=== PATIENT | female | born 1985 | race Caucasian/White ===

== ENCOUNTER 2017-04-15 05:00 | Emergency (ER) | payer OTHER ==
[2017-04-15 05:25] VITALS: PULSE 87; BMI 21.2
[2017-04-15] MEDS ORDERED: FAMOTIDINE 20 MG/50 ML IVPB 50 ML IVPB ONE ×2 (05:28→05:48)
[2017-04-15] MEDS ORDERED: SODIUM CHLORIDE 1,000 ML IV STA (05:28)
[2017-04-15] MEDS ORDERED: methylPREDNISolone NA SUCC 125 MG/2 ML VIAL IVPB ONE (05:28)
--- NOTE | 2017-04-15 05:34 | PDOC ---
History of Present Illness - General Chief Complaint: Pain Stated Complaint: STOMACH PAIN Time Seen by Provider: 04/15/17 05:23 History Source: Patient Exam Limitations: No Limitations - History of Present Illness Initial Comments: 04/15/17 05:30 31yo Female patient w/ PmHx: Asthma presents to ED c/o itching throat, stomach pain, itchy palms and feet. Patient states symptoms began 1 hour after taking Ibuprofen for bodyaches. LNMP: Current. She denies any other complaints. Timing/Duration: 1-3 hours Severity: mild Modifying Factors: improves with: medication. worse with: cold therapy, eating , immobilization, movement, rest, other Associated Symptoms: denies: denies symptoms, chest pain, cough, diaphoresis, fever/chills, headaches, loss of appetite, malaise, nausea/vomiting, rash, seizure, shortness of breath, syncope, weakness, other Past History - Travel Traveled outside of the country in the last 30 days: No Close contact w/someone who was outside of country & ill: No - Past Medical History Allergies/Adverse Reactions: Allergies Allergy/AdvReac Type Severity Reaction Status Date / Time prednisone Allergy Verified 04/15/17 05:22 Home Medications: Ambulatory Orders Fluticasone Prop 0.05% Nasal [Flonase -] 1 - 2 spray NS DAILY 05/12/16 Montelukast Na [Singulair -] 0 mg PO HS 05/12/16 Famotidine [Pepcid -] 40 mg PO DAILY #10 tablet 04/15/17 Asthma: Yes Diabetes: No HTN: No Hypercholesterolemia: No - Surgical History Abdominal Surgery: No Lung Surgery: No - Immunization History Immunization Up to Date: Yes - Suicide/Smoking/Psychosocial Hx Smoking History: Never smoked Have you smoked in the past 12 months: No Number of Cigarettes Smoked Daily: 0 Cigars Per Day: 0 Information on smoking cessation initiated: No Hx Alcohol Use: No Drug/Substance Use Hx: No Substance Use Type: None Hx Substance Use Treatment: No Review of Systems - Review of Systems Able to Perform ROS?: Yes Is the patient limited Lebanese proficient: No HEENTM: Yes: Throat Pain. No: Throat Swelling, Mouth Pain, Difficulty Swallowing, Mouth Swelling Respiratory: No: Cough Cardiac (ROS): No: Chest Pain ABD/GI: Yes: Abdominal cramping. No: Abdominal Distended, Constipated, Diarrhea , Difficulty Swallowing, Nausea, Poor Appetite, Poor Fluid Intake, Vomiting Integumentary: Yes: Pruritus All Other Systems: Reviewed and Negative *Physical Exam - Vital Signs Last Vital Signs Temp Pulse Resp BP Pulse Ox 98.1 F 87 14 123/87 97 04/15/17 05:23 04/15/17 05:23 04/15/17 05:23 04/15/17 05:23 04/15/17 05:23 - Physical Exam General Appearance: Yes: Nourished, Appropriately Dressed. No: Apparent Distress, Mild Distress, Moderate Distress, Severe Distress HEENT: positive: EOMI, LEXI, Normal ENT Inspection, Normal Voice, Symmetrical, TMs Normal, Pharynx Normal. negative: Pharyngeal Erythema, Tonsillar Exudate, Tonsillar Erythema, Nasal Congestion, Rhinorrhea, Sinus Tenderness, TM Bulging, TM Dull, TM Erythema Neck: positive: Trachea midline, Normal Thyroid, Supple. negative: Rigid, Stridor, Lymphadenopathy (R), Lymphadenopathy (L), Tender lateral, Tender midline Respiratory/Chest: positive: Lungs Clear, Normal Breath Sounds. negative: Chest Tender, Respiratory Distress, Accessory Muscle Use, Labored Respiration, Rapid RR, Paradoxal Breathing, Rhonchi, Stridor, Wheezing Cardiovascular: positive: Regular Rhythm, Regular Rate Musculoskeletal: positive: Normal Inspection. negative: CVA Tenderness Extremity: positive: Normal Capillary Refill, Normal Inspection, Normal Range of Motion. negative: Pedal Edema, Swelling, Calf Tenderness, Erythema, Inflammation Integumentary: positive: Normal Color, Dry, Warm Neurologic: positive: director supply chain II-XII NML intact, Fully Oriented, Alert, Normal Mood/ Affect, Normal Response, Motor Strength 5/5 *DC/Admit/Observation/Transfer Diagnosis at time of Disposition: Crampy pain associated with menses Allergic reaction Qualifiers: Encounter type: initial encounter Qualified Code(s): T78.40XA - Allergy, unspecified, initial encounter; T78.40XA - Allergy, unspecified, initial encounter - Discharge Dispostion Disposition: HOME Condition at time of disposition: Improved Admit: No - Prescriptions Prescriptions: Famotidine [Pepcid -] 40 mg PO DAILY #10 tablet - Patient Instructions Printed Discharge Instructions: DI for General Allergic Reactions Additional Instructions: Follow up with primary care provider this week for further evaluation. Take medications as prescribed. Return if symptom worsen or any concerns for further evaluation. Print Language: GUATEMAL[place]
[2017-04-15] MEDS ORDERED: methylPREDNISolone NA SUCC 125 MG/2 ML VIAL ONE (05:48)
[2017-04-15] MEDS ORDERED: diphenhydrAMINE HCL 12.5 MG/5 ML BULK BOTTLE ONE (05:48)
[2017-04-15 05:57] LABS: URINE APPEARANCE CLOUDY; URINE BILIRUBIN NEGATIVE (NEGATIVE); URINE BLOOD 3+ (NEGATIVE); URINE COLOR YELLOW; URINE GLUCOSE (UA) NEGATIVE (NEGATIVE); URINE KETONE NEGATIVE (NEGATIVE); URINE NITRITE NEGATIVE (NEGATIVE); URINE UROBILINOGEN NEGATIVE mg/dL (0.2-1.0)
[2017-04-15 05:58] LABS: URINE PROTEIN 2+ (NEGATIVE)
[2017-04-15 06:26] LABS: CALCIUM OXALATE CRYSTALS FEW /hpf (NONE SEEN); URINE BACTERIA FEW /hpf (NONE SEEN); URINE MUCUS RARE; URINE RBC 1007 /hpf (0-3); URINE WBC 25 /hpf (3-5)
[2017-04-15] MEDS ORDERED: ACETAMINOPHEN 325 MG TABLET (FP) PO ONE (06:34)
[2017-04-15] MEDS ORDERED: ACETAMINOPHEN 325 MG TABLET (FP) ONE (07:33)
[2017-04-15 07:44] VITALS: BP 122/72; TEMP 97.6
[2017-04-15 11:48] LABS: URINE LEUK ESTERASE TRACE (NEGATIVE)
== END 2017-04-15 07:45 | disposition home or self-care (01) ==
LOC: JER 05:00
PROC: 3E033GC Introduction of Other Therapeutic Substance into Peripheral Vein, Percutaneous Approach (ICD-10-PCS; principal; 2017-04-15)
PROC: 3E0337Z Introduction of Electrolytic and Water Balance Substance into Peripheral Vein, Percutaneous Approach (ICD-10-PCS; 2017-04-15)
DX: T78.40XA Allergy, unspecified, initial encounter (principal); N94.89 Other specified conditions associated with female genital organs and menstrual cycle
CPT/HCPCS: 81003; 81015; 84703; 99283-25

== ENCOUNTER 2019-01-09 15:48 | Emergency (ER) | payer OTHER ==
--- NOTE | 2019-01-09 15:59 | PDOC ---
Rapid Medical Evaluation Time Seen by Provider: 01/09/19 15:57 Medical Evaluation: Allergies Allergy/AdvReac Type Severity Reaction Status Date / Time prednisone Allergy Verified 04/15/17 05:22 01/09/19 15:58 HPI: R eye irritation x3 days PE: R eye conjunctiva injection ORDERS: nothing Discharge Disposition - Diagnosis Irritation of right eye - Referrals - Patient Instructions - Post Discharge Activity
[2019-01-09 16:02] VITALS: BP 99/67; PULSE 82; TEMP 97.8; BMI 24.0
--- NOTE | 2019-01-09 16:42 | PDOC ---
History of Present Illness - General Chief Complaint: Eye Problem Stated Complaint: EYE PROBLEM Time Seen by Provider: 01/09/19 15:57 History Source: Patient Exam Limitations: No Limitations Past History - Travel Traveled outside of the country in the last 30 days: No Close contact w/someone who was outside of country & ill: No - Past Medical History Allergies/Adverse Reactions: Allergies Allergy/AdvReac Type Severity Reaction Status Date / Time prednisone Allergy Verified 04/15/17 05:22 Home Medications: Ambulatory Orders Erythromycin 0.5% Eye Ointment [Erythromycin 0.5% Eye Ointment -] 1 applic OU BID #1 tube 01/09/19 Asthma: Yes COPD: No Diabetes: No HTN: No Hypercholesterolemia: No - Surgical History Abdominal Surgery: No Lung Surgery: No - Immunization History Immunization Up to Date: Yes - Suicide/Smoking/Psychosocial Hx Smoking History: Never smoked Have you smoked in the past 12 months: No Number of Cigarettes Smoked Daily: 0 Cigars Per Day: 0 Hx Alcohol Use: No Drug/Substance Use Hx: No Substance Use Type: None Hx Substance Use Treatment: No Review of Systems - Review of Systems Able to Perform ROS?: Yes Comments:: 01/09/19 21:23 CONSTITUTIONAL: Absent: fever, chills, diaphoresis, generalized weakness, malaise, loss of appetite HEENT: Present: b/l eye redness and itching Absent: rhinorrhea, nasal congestion, throat pain, throat swelling, difficulty swallowing, mouth swelling, ear pain, eye pain, visual Changes CARDIOVASCULAR: Absent: chest pain, loss of consciousness, palpitations, irregular heart rate, peripheral edema RESPIRATORY: Absent: cough, shortness of breath, dyspnea with exertion, orthopnea, wheezing, stridor, hemoptysis GASTROINTESTINAL: Absent: abdominal pain, abdominal distension, nausea, vomiting, diarrhea, constipation, melena, hematochezia GENITOURINARY: Absent: dysuria, frequency, urgency, hesitancy, hematuria, flank pain, genital pain MUSCULOSKELETAL: Absent: myalgia, arthralgia, joint swelling SKIN: Absent: rash, itching, pallor HEMATOLOGIC/IMMUNOLOGIC: Absent: easy bleeding, easy bruising, lymphadenopathy, frequent infections ENDOCRINE: Absent: unexplained weight gain, unexplained weight loss, heat intolerance, cold intolerance NEUROLOGIC: Absent: headache, focal weakness or paresthesias, dizziness, unsteady gait, seizure, mental status changes, bladder or bowel incontinence PSYCHIATRIC: Absent: anxiety, depression, suicidal or homicidal ideation, hallucinations. Is the patient limited German proficient: No *Physical Exam - Vital Signs Last Vital Signs Temp Pulse Resp BP Pulse Ox 97.8 F 82 14 99/67 100 01/09/19 15:59 01/09/19 15:59 01/09/19 15:59 01/09/19 15:59 01/09/19 15:59 - Physical Exam Comments: 01/09/19 21:23 GENERAL: The patient is awake, alert, and fully oriented, in no acute distress. HEAD: Normal with no signs of trauma. EYES: Pupils equal, round and reactive to light, extraocular movements intact, sclera anicteric, conjunctiva pink and watery b/l. EXTREMITIES: Normal range of motion, no edema. NEUROLOGICAL: Normal speech, normal gait. PSYCH: Normal mood, normal affect. SKIN: Warm, Dry, normal turgor, no rashes or lesions noted. Medical Decision Making - Medical Decision Making 01/09/19 23:05 The patient is a 33-year-old female past medical history presents with 2 days of bilateral eye itching and redness. She has tried [id number] ALLERGY drops which have not improved her symptoms. Her son also has similar symptoms. Denies fevers, chills, visual changes Social history: Conjunctivitis On exam the conjunctiva is injected bilaterally. No discharge noted Visual acuity intact. Suspect conjunctivitis Erythromycin ointment prescribed. Discharge home with primary care follow-up. I discussed the physical exam findings, ancillary test results and final diagnoses with the patient. I answered all of the patient's questions. The patient was satisfied with the care received and felt comfortable with the discharge plan and treatment plan. The Patient agrees to follow up with the primary care physician/specialist within 24-72 hours. Return precautions were given. *DC/Admit/Observation/Transfer Diagnosis at time of Disposition: Irritation of right eye Conjunctivitis Qualifiers: Conjunctivitis type: acute Acute conjunctivitis type: unspecified Laterality: bilateral Qualified Code(s): H10.33 - Unspecified acute conjunctivitis, bilateral - Discharge Dispostion Disposition: HOME Condition at time of disposition: Stable Decision to Admit order: No - Prescriptions Prescriptions: Erythromycin 0.5% Eye Ointment [Erythromycin 0.5% Eye Ointment -] 1 applic OU BID #1 tube - Referrals Referrals: Lex Dumont [Primary Care Provider] - - Patient Instructions Printed Discharge Instructions: DI for Conjunctivitis Additional Instructions: You have conjunctivitis. This is an eye infection. Please use erythromycin ointment twice a day to the affected eye for one week. Please wash her hands frequently Do not wear contact lenses until your infection clears Follow up with ophthalmology if her symptoms do not improve within a week. Return to the ER for visual changes, blurry vision, or any new or worsening symptoms. Tienes conjuntivitis. Esta es janki infeccin ocular. Use janki pomada de eritromicina dos veces al da en el yevgeniy afectado mattie janki semana. Por favor, lvese las lynette con frecuencia. No use lentes de contacto hasta que richardson infeccin desaparezca. Tisha un seguimiento con oftalmologa si laith sntomas no mejoran en janki semana. Regrese a la jeovany de emergencias para joesph cambios visuales, visin borrosa o cualquier sntoma nuevo o que empeore. Print Language: [place] - Post Discharge Activity
== END 2019-01-09 16:44 | disposition home or self-care (01) ==
LOC: JERFT 15:48
DX: H10.33 Unspecified acute conjunctivitis, bilateral (principal)
CPT/HCPCS: 99281-25

== ENCOUNTER 2019-07-21 23:57 | Emergency (ER) | payer OTHER ==
[2019-07-22 00:26] VITALS: BP 111/65; PULSE 86; TEMP 97.9; BMI 25.7
--- NOTE | 2019-07-22 01:50 | PDOC ---
History of Present Illness - General Chief Complaint: Asthma Stated Complaint: ASTHMA Time Seen by Provider: 07/22/19 01:40 History Source: Patient Exam Limitations: No Limitations - History of Present Illness Initial Comments: 07/22/19 01:50 HISTORY OF PRESENT ILLNESS: This a 33-year-old woman with past medical history of asthma presents emergency department for evaluation of 4 days of fevers, chills, sore throat, moist productive cough, body aches and decreased appetite. She reports she is drinking plenty of fluids but is concerned that she still feels weak and "rundown." Patient has been taken Tylenol to help with her fevers took Tylenol prior to coming to the ER. She denies any nausea or vomiting. No recent travel or sick contacts. PAST MEDICAL HISTORY: Denies past medical history SURGICAL HISTORY: Denies ALLERGIES: No known drug allergies REVIEW OF SYSTEMS General/Constitutional: +fever. Denies weakness, weight change. HEENT: Denies change in vision. Denies ear pain or discharge. +sore throat. Cardiovascular: Denies chest pain or shortness of breath. Respiratory: Moist productive cough. Denies wheezing, or hemoptysis. Gastrointestinal: Denies nausea, vomiting, diarrhea or constipation. Denies rectal bleeding. Genitourinary: Denies dysuria, frequency, or change in urination. Musculoskeletal: +myalgias. Denies neck or back pain. Skin and breasts: Denies rash or easy bruising. Neurologic: Denies headache, vertigo, loss of consciousness, or loss of sensation. Psychiatric: Denies depression or anxiety. Endocrine: Denies increased thirst. Denies abnormal weight change. Hematologic/Lymphatic: Denies anemia, easy bleeding, or history of blood clots. Allergic/Immunologic: Denies hives or skin allergy. Denies latex allergy. PHYSICAL EXAM General Appearance: Well-appearing, appropriately dressed. No apparent distress , no intoxication. HEENT: EOMI, PERRLA, normal voice, TMs retracted bilaterally. No conjunctival pallor. No photophobia, scleral icterus. Oropharynx erythematous without lesions or exudate. Cobblestoning noted in the posterior. No nasal discharge present. Neck: Supple. Trachea midline. No tenderness, rigidity, carotid bruit, stridor , or thyromegaly. Nontender anterior cervical lymphadenopathy present. Respiratory/Chest: Lungs CTAB. No shortness of breath, chest tenderness, respiratory distress, accessory muscle use. No crackles, rales, rhonchi, stridor , wheezing, dullness Cardiovascular: RRR. S1, S2. No JVD, murmur, bradycardia, tachycardia. Vascular Pulses: Dorsalis-Pedis (R): 2+, Dorsalis-Pedis (L): 2+ Gastrointestinal/Abdominal: Normal bowel sounds. Abdomen soft, non-distended. No tenderness or rebound tenderness. No organomegaly, pulsatile mass, guarding, hernia, hepatomegaly, splenomegaly. Musculoskeletal/Extremities: Normal inspection. FROM of all extremities, normal capillary refill. Pelvis Stable. No CVA tenderness. No tenderness to extremities, pedal edema, swelling, erythema or deformity. Integumentary: Appropriate color, dry, warm. No cyanosis, erythema, jaundice or rash Neurologic: international student advisor II-XII intact. Fully oriented, alert. Appropriate mood/affect. Motor strength 5/5. No appreciable EOM palsy, facial droop or sensory deficit. 07/22/19 07:03 Past History - Past Medical History Allergies/Adverse Reactions: Allergies Allergy/AdvReac Type Severity Reaction Status Date / Time prednisone Allergy Verified 07/22/19 00:25 Home Medications: Ambulatory Orders Erythromycin 0.5% Eye Ointment [Erythromycin 0.5% Eye Ointment -] 1 applic OU BID #1 tube 01/09/19 Asthma: Yes COPD: No Diabetes: No HTN: No Hypercholesterolemia: No - Surgical History Abdominal Surgery: No Lung Surgery: No - Immunization History Immunization Up to Date: Yes - Psycho Social/Smoking Cessation Hx Smoking History: Never smoked Have you smoked in the past 12 months: No Number of Cigarettes Smoked Daily: 0 Cigars Per Day: 0 Information on smoking cessation initiated: No Hx Alcohol Use: No Drug/Substance Use Hx: No Substance Use Type: None Hx Substance Use Treatment: No *Physical Exam - Vital Signs Last Vital Signs Temp Pulse Resp BP Pulse Ox 97.9 F 86 17 111/65 98 07/22/19 00:22 07/22/19 00:22 07/22/19 00:22 07/22/19 00:22 07/22/19 00:22 Medical Decision Making - Medical Decision Making 07/22/19 01:48 A/P: 33-year-old woman with 4 days of flulike symptoms Patient is afebrile here but reports she took Tylenol prior to coming to the ER. As patient is outside the window for Tamiflu I will defer testing at this time. Supportive treatment has been discussed with the patient was verbalized understanding of discharge instructions. 07/22/19 07:03 Discharge - Discharge Information Problems reviewed: Yes Clinical Impression/Diagnosis: Influenza-like illness Condition: Fair Disposition: HOME - Admission No - Follow up/Referral Referrals: ON STAFF,NOT [Primary Care Provider] - - Patient Discharge Instructions Additional Instructions: Rest, drink lots of fluids: Teas, water, soups, Pedialyte Saltwater gargles Steamy showers/seem to face break up mucus Avoid contact with others until fevers and cough resolved Lots of handwashing and good hygiene Continue [id number] medications for symptomatic relief Tylenol or Motrin for fever and pain Followup with private physician in one to 2 days as needed Return to emergency department for worsened symptoms, fevers, dehydration El descakiloanaliliaos lquidos: ts, agua, sopas, Pedialyte grgaras de agua salada Duchas Steamy / parecen enfrentar aflojar la mucosidad Evite el contacto con otras personas hasta que la fiebre y la tos resueltos Un montn de lavado de lynette y la higiene Continuar [id number] medicamentos para el alivio sintomtico Tylenol o Motrin para la fiebre y el dolor Followup con el mdico privado en laura o 2 carter segn sea necesario Regresar a urgencias por sntomas empeoraron, fiebres, deshidratacin - Post Discharge Activity
--- NOTE | 2019-07-22 01:56 | PDOC ---
*Physical Exam - Vital Signs Last Vital Signs Temp Pulse Resp BP Pulse Ox 97.9 F 86 17 111/65 98 07/22/19 00:22 07/22/19 00:22 07/22/19 00:22 07/22/19 00:22 07/22/19 00:22 Medical Decision Making - Medical Decision Making 07/22/19 01:55 Patient seen by the advanced practice provider under my direct supervision. Ancillary testing reviewed as necessary. I agree with plan as outlined by the advanced practice provider. Discharge - Discharge Information Problems reviewed: Yes Clinical Impression/Diagnosis: Influenza-like illness Condition: Fair Disposition: HOME - Follow up/Referral Referrals: ON STAFF,NOT [Primary Care Provider] - - Patient Discharge Instructions Additional Instructions: Rest, drink lots of fluids: Teas, water, soups, Pedialyte Saltwater gargles Steamy showers/seem to face break up mucus Avoid contact with others until fevers and cough resolved Lots of handwashing and good hygiene Continue [id number] medications for symptomatic relief Tylenol or Motrin for fever and pain Followup with private physician in one to 2 days as needed Return to emergency department for worsened symptoms, fevers, dehydration El chuckoanalilia muchos lquidos: ts, agua, sopas, Pedialyte grgaras de agua salada Duchas Steamy / parecen enfrentar aflojar la mucosidad Evite el contacto con otras personas hasta que la fiebre y la tos resueltos Un montn de lavado de lynette y la higiene Continuar nxrr-zkt-[id number] medicamentos para el alivio sintomtico Tylenol o Motrin para la fiebre y el dolor Followup con el mdico privado en laura o 2 carter segn sea necesario Regresar a urgencias por sntomas empeoraron, fiebres, deshidratacin - Post Discharge Activity
== END 2019-07-22 02:06 | disposition home or self-care (01) ==
LOC: JER 23:57
DX: J11.1 Influenza due to unidentified influenza virus with other respiratory manifestations (principal); M79.18 Myalgia, other site
CPT/HCPCS: 99281-25

== ENCOUNTER 2022-02-06 13:22 | Emergency (ER) | payer OTHER ==
[2022-02-06 13:46] VITALS: TEMP 98; BMI 25.9
[2022-02-06] MEDS ORDERED: FAMOTIDINE 20 MG/50 ML IVPB 20 MG/50 ML MG IVPB ONE ×2 (15:32→15:38)
[2022-02-06] MEDS ORDERED: LIDOCAINE VISCOUS 2% ORAL/TOP 15 ML UNIT-DOSE CUP MM ONE (15:32)
[2022-02-06] MEDS ORDERED: MAG HYDROX/AL HYDROX/SIMETH -MYLANTA- ORAL SUSPENSION PO ONE (15:32)
[2022-02-06] MEDS ORDERED: ACETAMINOPHEN 1000 MG/100 ML BAG IVPB ONE (15:32)
[2022-02-06] MEDS ORDERED: MAG HYDROX/AL HYDROX/SIMETH 30 ML UNIT-DOSE CUP ONE (15:38)
[2022-02-06] MEDS ORDERED: LIDOCAINE VISCOUS 2% ORAL/TOP 15 ML UNIT-DOSE CUP ONE (15:38)
[2022-02-06] MEDS ORDERED: ACETAMINOPHEN INJECTION 100 ML IVPB ONE (15:38)
[2022-02-06 16:35] LABS: HEMATOCRIT 36.6 % (32.4-45.2); HEMOGLOBIN 12.1 GM/dL (10.7-15.3); MCH 26.5 pg (25.7-33.7); MCHC 33.2 g/dl (32.0-36.0); MEAN CELL VOLUME 79.8 fl (80-96); MEAN PLT VOLUME 7.9 fl (7.5-11.1); PLATELET COUNT 357 10^3/uL (134-434); RBC 4.58 M/mm3 (3.60-5.2); WHITE BLOOD COUNT 5.8 K/mm3 (4.0-10.0)
[2022-02-06 16:59] LABS: ALBUMIN 4.1 g/dl (3.4-5.0)
[2022-02-06 17:02] LABS: CREATININE 0.7 mg/dL (0.55-1.3)
[2022-02-06 17:04] LABS: BILIRUBIN,TOTAL 0.6 mg/dL (0.2-1); TOT PROT 7.3 g/dl (6.4-8.2)
[2022-02-06 17:05] VITALS: BP 108/68; PULSE 82; RESP 16
== END 2022-02-06 20:03 | disposition home or self-care (01) ==
LOC: JER 13:22
PROC: 3E0333Z Introduction of Anti-inflammatory into Peripheral Vein, Percutaneous Approach (ICD-10-PCS; principal; 2022-02-06)
PROC: 3E033GC Introduction of Other Therapeutic Substance into Peripheral Vein, Percutaneous Approach (ICD-10-PCS; 2022-02-06)
DX: R10.13 Epigastric pain (principal)
CPT/HCPCS: 36415; 76705-TC; 80053; 85027; 96374; 96375; 99284-25